=== PATIENT | female | born 1970 ===

== ENCOUNTER 2017-01-16 10:18 | Inpatient (IN) | payer MEDICAID, OTHER ==
[2017-01-16 10:29] VITALS: BMI 24.7
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
--- NOTE | 2017-01-16 11:22 | RAD ---
HISTORY: psych screen COMPARISON: No prior. FINDINGS: LUNGS: The lungs are well inflated. The right lung is clear. There is linear atelectasis/scarring in the left lower lobe. There is no focal consolidation. PLEURA: No significant pleural effusion identified, no pneumothorax apparent. CARDIOVASCULAR: Normal. OSSEOUS STRUCTURES: No significant abnormalities. VISUALIZED UPPER ABDOMEN: Normal. OTHER FINDINGS: None. IMPRESSION: No active pulmonary disease.
[2017-01-16 11:25] LABS: BASO # 0.1 K/uL (0.0-0.2); BASO % 0.9 % (0.0-2.0); EOS % 0.5 % (0.0-4.0); HEMATOCRIT 42.9 % (34.0-47.0); LYMPH % 34.4 % (20.0-40.0); MEAN CELL VOLUME 87.8 fl (81.0-99.0); MEAN CORPUSCULAR HGB CONC 34.1 g/dL (33.0-37.0); MEAN PLATELET VOLUME 7.9 fl (7.2-11.7); MONO # 0.5 K/uL (0.0-0.8); MONO % 9.4 % (0.0-10.0); NEUT # 3.2 K/uL (1.8-7.0); NEUT % 54.8 % (50.0-75.0); NRBC % 0.2 % (0.0-0.0); RED CELL DISTRIBUTION WIDTH 13.7 % (11.5-14.5); WHITE BLOOD COUNT 5.8 K/uL (4.8-10.8)
[2017-01-16 11:27] LABS: ALB/GLOB RATIO 1.1 (1.0-2.1); ALCOHOL SERUM < 10 mg/dl (0-10); ALKALINE PHOSPHATASE 71 U/L (38-126); ALT/SGPT 27 U/L (9-52); AST/SGOT 26 U/L (14-36); BILIRUBIN,TOTAL 0.5 mg/dl (0.2-1.3); BLOOD UREA NITROGEN 14 mg/dl (7-17); CALCIUM 9.7 mg/dL (8.4-10.2); CARBON DIOXIDE 27 mmol/L (22-30); CHLORIDE 103 mmol/L (98-107); GFR AFRICAN-AMERICAN > 60; GLUCOSE,RANDOM 83 mg/dL (65-105); POTASSIUM 4.2 MMOL/L (3.6-5.0); SODIUM 144 mmol/l (132-148); TOTAL PROTEIN 8.7 G/DL (6.3-8.2)
--- NOTE | 2017-01-16 16:47 | CARD ---
APPROVED REPORT EKG Measurement Heart [id number] <Conclusion> Normal sinus rhythm Normal ECG
[2017-01-16 18:12] LABS: RBC URINE 1 /hpf (0-3); URINE BACTERIA RARE (<OCC); URINE BILIRUBIN NEGATIVE (NEGATIVE); URINE BLOOD NEGATIVE (NEGATIVE); URINE COLOR YELLOW (YELLOW); URINE GLUCOSE (UA) NEG (Normal); URINE KETONE NEGATIVE (NEGATIVE); URINE LEUKOCYTE ESTERASE NEG Leu/uL (Negative); URINE PROTEIN NEGATIVE (NEGATIVE); URINE UROBILINOGEN 0.2-1.0 mg/dL (0.2-1.0); WBC URINE 3 /hpf (0-5)
--- NOTE | 2017-01-16 20:56 | ED PDOC ---
- Laboratory Results Result Diagrams: 01/16/17 11:00 01/16/17 11:00 - ECG O2 Sat by Pulse Oximetry: 100 (RA) Medical Decision Making Medical Decision Makin:00 Patient endorsed over to me by Olman Olivo MD, pending Crisis Evaluation, reevaluation and final disposition. 20:52 Patient has been evaluated by Crisis and meets criterion for psychiatric admission, with a diagnosis of Depression as per Dr. Schneider (Psychiatrist electronic engraver). Patient has agreed to sign herself in voluntarily for further treatment. Condition fair. Clinical Impression: Depression Scribe Attestation: Documented by Mariel Hurd, acting as a scribe for Jeff Whelan MD. Provider Scribe Attestation: All medical record entries made by the Scribe were at my direction and personally dictated by me. I have reviewed the chart and agree that the record accurately reflects my personal performance of the history, physical exam, medical decision making, and the department course for this patient. I have also personally directed, reviewed, and agree with the discharge instructions and disposition. Disposition - Clinical Impression Clinical Impression: Depression - POA Present On Arrival: None - Disposition Disposition: Admitted as In-Patient (psych) Disposition Time: 20:52 Condition: FAIR
[2017-01-16 21:44] VITALS: O2SAT 99
[2017-01-16] MEDS ORDERED: DiphenhydrAMINE 50 mg/ml Inj IM PRN (22:28)
[2017-01-16] MEDS ORDERED: Alum-Mag Hydrox-Simethicone Susp (30 mL) PO PRN (22:28)
[2017-01-16] MEDS ORDERED: Magnesium Hydroxide Susp 30 ml UD PO PRN (22:28)
[2017-01-17 08:16] LABS: T4 5.46 ug/dl (5.5-11.0)
[2017-01-17 08:30] LABS: THYROID STIMULATING HORMONE 0.32 mIU/ML (0.46-4.68)
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
--- NOTE | 2017-01-18 08:56 | PCM.PYCHPN ---
Psychiatric Progress Note - Psychiatric Progress Note Patient seen today, length of contact: Patient evaluated, chart reviewed, case discussed with team Patient Chief Complaint: "I'm feeling better." Problems Identified/Issues Discussed: No significant events overnight. She reports that her mood is improving. She is hoping to be discharged soon, but is agreeable to staying to get restabilized on her medications. She denies ideation to harm herself and is adamant that she did not attempt to kill herself. She denies acute psychotic symptoms. She reports that the Trazodone has not been helpful for sleep, so she does not want to take it anymore. Medication Change: Yes (Stop Trazodone) Medical Record Reviewed: Yes Mental Status Examination - Cognitive Function Orientation: Person, Place, Situation, Time Memory: Intact Attention: WNL Concentration: WNL Association: WNL Fund of Knowledge: WNL - Mood Mood: Anxious - Affect Affect: Broad - Speech Speech: Appropriate - Formal Thought Process Formal Thought Process: No Impairment Psychotic Thoughts and Behaviors: NO AH/VH/paranoia - Suicidal Ideation Suicidal Ideation: No - Homicidal Ideation Homicidal Ideation: No Goal/Treatment Plan - Goal/Treatment Plan Need for Continued Stay: Severe depression anxiety, Discharge may exacerbated symptoms Progress Toward Problem(s) and Goals/Treatment Plan: 46 yo female w/ substance induced mood disorder, anxiety disorder unspecified, cocaine/barbiturate/benzodiazepine abuse, now reporting improvement in mood and denies ideation to harm herself. -Continue Lexapro 10 mg PO Daily, Abilify 10 mg PO Daily -Supportive and motivational therapy -Group therapy -Medicine consult -Nicotine patch -No 1:1 indicated as the patient can contract for safety -Likely discharge on Thursday, if patient continues to improve clinically Estimated Date of D/C: 01/20/17 - Smoking Cessation Smoking Cessation Initiated: Yes
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
[2017-01-19] MEDS ORDERED: Alum-Mag Hydrox-Simethicone Susp (30 mL) PO PRN (11:22)
[2017-01-19] MEDS ORDERED: Magnesium Hydroxide Susp 30 ml UD PO PRN (11:22)
[2017-01-19] MEDS ORDERED: DiphenhydrAMINE 50 mg/ml Inj IM PRN (11:22)
[2017-01-20 06:28] VITALS: PULSE 73; RESP 20
--- NOTE | 2017-01-20 12:52 | PCM.PYCHPN ---
Psychiatric Progress Note - Psychiatric Progress Note Patient seen today, length of contact: Patient evaluated, chart reviewed, case discussed with team Patient Chief Complaint: "I'm feeling better." Problems Identified/Issues Discussed: Patient was screened by [facility] and accepted, bed pending. She denies ideation to harm herself and reports that her mood continues to improve. She denies acute psychotic symptoms. Medication Change: No Medical Record Reviewed: Yes Mental Status Examination - Cognitive Function Orientation: Person, Place, Situation, Time Memory: Intact Attention: WNL Concentration: WNL Association: WNL Fund of Knowledge: [facility] Decription of patient's judgement and insights: Fair I/J - Mood Mood: Neutral - Affect Affect: Broad - Speech Speech: Appropriate - Formal Thought Process Formal Thought Process: No Impairment Psychotic Thoughts and Behaviors: NO AH/VH/paranoia - Suicidal Ideation Suicidal Ideation: No - Homicidal Ideation Homicidal Ideation: No Goal/Treatment Plan - Goal/Treatment Plan Need for Continued Stay: Severe depression anxiety, Discharge may exacerbated symptoms Progress Toward Problem(s) and Goals/Treatment Plan: 46 yo female w/ substance induced mood disorder, anxiety disorder unspecified, cocaine/barbiturate/benzodiazepine abuse, now reporting improvement in mood and denies ideation to harm herself. -Continue Lexapro 10 mg PO Daily, Abilify 10 mg PO Daily -Supportive and motivational therapy -Nicotine patch -Accepted to [facility] for involuntary admission, awaiting bed Estimated Date of D/C: 01/21/17 - Smoking Cessation Smoking Cessation Initiated: Yes
[2017-01-20 15:42] VITALS: BP 136/84; TEMP 97.7
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
== END 2017-01-20 22:15 | DRG 747 ==
LOC: H.ER 10:18 → H.EROBSV 11:28 → OBSVTOIN 20:52 → H.ERHOLD 21:06 → H.STEP 22:25
PROVIDERS: ADMIT Psychiatry & Neurology Psychiatry; ATTEND Psychiatry & Neurology Psychiatry
PROC: GZHZZZZ Group Psychotherapy (ICD-10-PCS; principal; 2017-01-16)
PROC: GZ58ZZZ Individual Psychotherapy, Cognitive-Behavioral (ICD-10-PCS; 2017-01-16)
DX: F14.14 Cocaine abuse with cocaine-induced mood disorder (principal); F13.14 Sedative, hypnotic or anxiolytic abuse with sedative, hypnotic or anxiolytic-induced mood disorder; M05.20 Rheumatoid vasculitis with rheumatoid arthritis of unspecified site; F41.9 Anxiety disorder, unspecified; F12.10 Cannabis abuse, uncomplicated; Z91.410 Personal history of adult physical and sexual abuse; F17.210 Nicotine dependence, cigarettes, uncomplicated

== ENCOUNTER 2018-07-09 12:35 | Inpatient (IN) | payer MEDICAID, OTHER ==
[2018-07-09 12:36] VITALS: BMI 24.7
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
[2018-07-09] MEDS ORDERED: Tdap Vaccine 0.5 ml Vial (10-64 yrs) IM ONE ×2 (13:54→14:29)
[2018-07-09 18:28] LABS: BASO % 0.8 % (0.0-2.0); EOS % 0.4 % (0.0-4.0); HEMOGLOBIN 14.3 g/dL (12.0-16.0); LYMPH # 1.3 K/uL (1.0-4.3); LYMPH % 30.1 % (20.0-40.0); MEAN CELL VOLUME 89.2 fl (81.0-99.0); MEAN CORPUSCULAR HEMOGLOBIN 30.9 pg (27.0-31.0); MEAN CORPUSCULAR HGB CONC 34.6 g/dL (33.0-37.0); MEAN PLATELET VOLUME 7.1 fl (7.2-11.7); MONO # 0.6 K/uL (0.0-0.8); MONO % 14.2 % (0.0-10.0); NEUT # 2.4 K/uL (1.8-7.0); NEUT % 54.5 % (50.0-75.0); RBC 4.65 Mil/uL (3.80-5.20); RED CELL DISTRIBUTION WIDTH 13.6 % (11.5-14.5); WHITE BLOOD COUNT 4.4 K/uL (4.8-10.8)
[2018-07-09 18:33] LABS: SQUAMOUS EPITHIAL 3 /hpf (0-5); URINE BACTERIA FEW (<OCC); URINE BILIRUBIN NEGATIVE (NEGATIVE); URINE BLOOD NEGATIVE (NEGATIVE); URINE CLARITY SLIGHTY-CLOUDY (Clear); URINE COLOR YELLOW (YELLOW); URINE GLUCOSE (UA) NEG (Normal); URINE LEUKOCYTE ESTERASE NEG Leu/uL (Negative); URINE PROTEIN NEGATIVE (NEGATIVE); URINE UROBILINOGEN 0.2-1.0 mg/dL (0.2-1.0)
[2018-07-09 18:36] LABS: ALB/GLOB RATIO 1.1 (1.0-2.1); ALBUMIN 4.5 g/dL (3.5-5.0); ALT/SGPT 23 U/L (9-52); AST/SGOT 32 U/L (14-36); BLOOD UREA NITROGEN 21 mg/dl (7-17); CALCIUM 9.3 mg/dL (8.4-10.2); GFR NON-AFRICAN AMERICAN 53
[2018-07-09 19:04] LABS: BARBITURATES, UR NEGATIVE (NEGATIVE); BENZODIAZEPINES, UR NEGATIVE (NEGATIVE); OPIATES, UR POSITIVE (NEGATIVE); PHENCYCLIDINE, UR NEGATIVE (NEGATIVE)
[2018-07-09 22:16] VITALS: O2SAT 100
[2018-07-09] MEDS ORDERED: Magnesium Hydroxide Susp 30 ml UD PO PRN (22:44)
[2018-07-09] MEDS ORDERED: DiphenhydrAMINE 50 mg/ml Inj IM PRN (22:44)
--- NOTE | 2018-07-10 03:03 | PCM.BM ---
<Debra Chauhan Adina - Last Filed: 07/10/18 03:01> Treatment Plan Problems - Problems identified on initial assessmt Medication nonadherence Date Initiated: 07/10/18 Time Initiated: 03:02 Assessment reference: NA Status: Active Aletered Sleep Patterns Date Initiated: 07/10/18 Time Initiated: 03:02 Assessment reference: NA Status: Active Treatment assets and liabiliti Patient Assests: cooperative, self-reliant, ADL independent, good support system Patient Liabilities: relationship conflicts, substance abuse - Milieu Protocol Maintain good personal hygiene: every shift Encourage regular showers, every shift Remind patient to perform daily oral care, every shift Assist patient to perform ADL's Maintain personal safety: every shift Educate patient to report safety concerns to staff, every shift Monitor environment for contraband/sharps Medication safety: Monitor for expected outcome, potential side effects: every shift, Assess barriers to learning: every shift, Assess readiness for medication education: every shift <AngelCourtney - Last Filed: 07/14/18 15:55> Treatment assets and liabiliti Patient Assests: adapts well, cooperative, resourceful, self-reliant, ADL independent, negotiates basic needs, cognitively intact Family Contact Family contact: Family has been contacted by patient, Patient declines to allow family contact at present - Goals for Treatment Patient goals for treatment: Patient to continue stabilization on 3NP through medication management and group/supportive therapy. Patient to be encouraged to attend groups regularly to promote self-awareness, sobriety, and improve insight, compliance, coping skills and self-esteem. Patient to be provided with referral for appropriate level of aftercare to reduce risk of future hospitalizations and ensure safety in the community. Discharge/Continuing Care - Education Needs Education Needs: Patient Medication, Patient Diagnosis/Disease Process, Patient Coping Skills, Patient Anger Management skills, Patient Community resources, Patient Aftercare Safety Plan - Discharge Discharge Criteria: Tolerates medication w/o severe side effects, Free of Suicidal thoughts, Free of agitation, Normal sleep pattern, Other Discharge to:: Home, Custodial - Treatment Team Participation Patient/Family/SO Statement: 07/14/18 15:57 Patient was seen in tx team on 07/12 to discuss precursors to hospitalization and tx goals. Pt. presented as disheveled with fair ADLs. Pt. labile and easily irritable, primarily regarding current hospitalization and recommendation for further stabilization. Pt. discharge focused, expressing plans to return to work, attend OPS with [facility] and stay in [facility] upon discharge instead of returning to [facility] home. Pt. became loud and agitated when encouraged to remain on 3NP for further stabilization. Pt. began slamming on tx team table, yelling at staff, and lifting gown to expose self in attempts to prove that injuries sustained prior to admission were not a suicide attempt. Pt. required limit setting and descalation. Speech: pressured and confrontational. Insight into precursors to hospitalization, illness and need for tx is poor. Coping skills/Judgment impaired. Pt. superficially motivated for tx and minimally receptive to feedback. Pt. denied sxs of depression or anxiety. Pt. denied SI/HI. Pt. left room abruptly and refused to sign tx plan. Discussed with Family/SO: No Was Patient/Family/SO present at Treatment Team Meeting: Yes <Garfield Covarrubias - Last Filed: 07/15/18 11:31> Treatment Plan Problems - Problems identified on initial assessmt Medication nonadherence Date Initiated: 07/10/18 Time Initiated: 03:02 Assessment reference: NA Status: Active Aletered Sleep Patterns Date Initiated: 07/10/18 Time Initiated: 03:02 Assessment reference: NA Status: Active Bipolar Disorder Date Initiated: 07/13/18 Time Initiated: 10:01 Assessment reference: NA Status: Active - Diagnosis (1) Depression Status: Acute Interventions: psychotherapy, pharmacotherapy 07/15/18 11:31
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
[2018-07-10 08:34] LABS: T4 5.47 ug/dl (5.5-11.0)
--- NOTE | 2018-07-10 10:44 | CARD ---
APPROVED REPORT Date of service: 07/09/2018 EKG Measurement Heart [id number] <Conclusion> Normal sinus rhythm Prolonged QT Abnormal ECG
--- NOTE | 2018-07-10 16:42 | PCM.PSYCH ---
Initial Psychiatric Evaluation - Initial Psychiatric Evaluation Chief Complaint (in patient's own words): was feeling stressed saddened anxious Patient's Reaction to Hospitalization: signed in voluntarily History of Present Illness and Precipitating Events: pt reports that was feeling stressed did not try to cut her wrist was result of trying to climb over fence after reported argument with family member. reports previous treatment in community for depression and anxiety with insomnia pt emergency room crisis note: CW (IVANA) spoke to pt's daughter (Anabela Kim) via phone, whom reported that she is concerned about her mother's safety. She reported that pt has an extensive psychiatric history and she has been diagnosed with Bipolar Disorder and she is not presently receiving psychiatric treatment. Pt's daughter stated pt is non-complian with her medication and she has attempted to end her life several times. Pt's daughter reported that today pt jumped over the fence as a "way to hurt herself" as she stated she wanted to end her life. Pt's daughter stated that pt's has other two younger daughters and she is worried that pt is not mentally stable to care for them effectively. Pt's daughter reported that pt also uses drug and alcohol to cope with her emotions. Pt's daughter reported that she believes pt would benefit from beign admitted psychiatrically. Current Medications: Active Medications Generic Name Dose Route Start Last Admin Trade Name Freq PRN Reason Stop Dose Admin Acetaminophen 650 mg 07/09/18 22:44 07/09/18 23:03 Tylenol 325mg Tab PO 650 mg Q4 PRN Administration Pain, moderate (4-7) Al Hydrox/Mg Hydrox/Simethicone 30 ml 07/09/18 22:44 Maalox Plus 30 Ml PO Q4 PRN Dyspepsia Diphenhydramine HCl 50 mg 07/09/18 22:44 Benadryl IM Q6 PRN Extrapyramidal S/S Unable PO Diphenhydramine HCl 50 mg 07/09/18 22:44 07/09/18 23:05 Benadryl PO 50 mg Q6 PRN Administration Extrapyramidal Symptoms Diphenhydramine HCl 50 mg 07/09/18 22:51 Benadryl PO HS PRN Sleep Haloperidol 5 mg 07/09/18 22:44 Haldol PO Q4 PRN Agitation Haloperidol Lactate 5 mg 10/05/18 22:44 Haldol IM Q4 PRN Agitation, Unable to Take PO Lorazepam 2 mg 07/09/18 22:44 Ativan IM Q4 PRN Anxiety/Agitation,Unable PO Lorazepam 1 mg 07/09/18 22:44 Ativan PO Q6 PRN Anxiety/Agitation Magnesium Hydroxide 30 ml 07/09/18 22:44 Milk Of Magnesia PO HS PRN Constipation Past Psychiatric History - Past Psychiatric History Prior Professional Help: outpatient treatment depression anxiety insomnia History of Abuse: denies History of ETOH/Drug Use: opiates and cocain in urine toxicology History of Family Illness: denies Pertinent Medical Hx (Current Medical&Sleep Prob, Allergies): Allergies Allergy/AdvReac Type Severity Reaction Status Date / Time No Known Allergies Allergy Verified 07/09/18 12:40 Alprazolam [Xanax] 2 mg PO Q6 PRN 07/09/18 Buprenorphine HCl/Naloxone HCl [Buprenorphin-Naloxon 8-2 mg Sl] 1 tab PO Q12 07/09/18 DULoxetine [Cymbalta] 30 mg PO DAILY 07/09/18 Mirtazapine [Remeron] 30 mg PO HS 07/09/18 Quetiapine Fumarate [Seroquel] 400 mg PO DAILY 07/09/18 Zolpidem [Ambien] 10 mg PO HS 07/09/18 Review of Systems - Psychiatric Psychiatric: Abnormal Sleep Pattern, Anxiety, Depression, Suicidal Ideation Mental Status Examination - Affect Affect: Constricted - Motor Activity Motor Activity: Psychomotor Retardation - Reliability in Providing Information Reliability in Providing Information: Fair - Speech Speech: Organized - Mood Mood: Depressed, Anxious - Formal Thought Process Formal Thought Process: No Impairment - Obsessions/Compulsions Obsessions: No Compulsions: No - Cognitive Functions Orientation: Person, Place, Situation, Time Sensorium: Alert Attention/Concentration: Attentive Judgement: Imparied, as evidence by: Other - Risk Risk: Suicidal - Strength & Assets Inventory Strength & Assets Inventory: Cooperative (questionable follow up) DSM 5 DX - DSM 5 DSM 5 Diagnosis: 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 generalized anxiety insomnia status post laceration left wrist - Recommended/Plan of Treatment Treatment Recommendations and Plan of Treatment: inpt admission per attending physician vital signs and clinical observation per protocol and per clinical status prns per unit protocol hospitalist consult restart home medication ambien 5mg po hs prn insomnia cymbalta 30mg po am first dose now mirtazepine 30mg po hs discharge planning in progress Projected ELOS: 5-7 days or per clinical status Prognosis: guarded Discharge Plan and Discharge Criteria: safety - Smoking Cessation Smoking Cessation Initiated: No Reason for not providing: defers
--- NOTE | 2018-07-11 19:19 | PCM.PYCHPN ---
Psychiatric Progress Note - Psychiatric Progress Note Patient seen today, length of contact: chart reviewed case discussed with Patient Chief Complaint: reports feeling abit calmer, sleeping better, no side effects medications, staff report pt adherent with treatment, staff report dressing was changed wrist with good approximation no visible signs of infection, pt denies complaints of pain. reports was accident while jumping over fence denies as being suicide attempt. Problems Identified/Issues Discussed: alteration in mood alteration in sleep alteration in skin integrity Medical Problems: per chart laceration left wrist per chart Diagnostic Results: per psychiatry per medicine per nursing per social insurance analyst per recreational therapy DSM 5 Symptoms Update: lability in mood impaired sleep Medication Change: No Medical Record Reviewed: Yes Consults ordered or reviewed: pt seen by hospitalist Mental Status Examination - Cognitive Function Orientation: Person, Place, Situation, Time Attention: WNL Concentration: WNL Association: WNL Fund of Knowledge: WNL Decription of patient's judgement and insights: impaired - Mood Mood: Depressed, Anxious - Affect Affect: Constricted - Formal Thought Process Formal Thought Process: No Impairment - Homicidal Ideation Homicidal Ideation: No Goal/Treatment Plan - Goal/Treatment Plan Progress Toward Problem(s) and Goals/Treatment Plan: inpt milieu vital signs and clinical observation per protocol and per clinical status dressing change per protocol adjust meds per status discharge planning in progress Estimated Date of D/C: 07/13/18 - Smoking Cessation Smoking Cessation Initiated: No Reason for not providing: defers
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
[2018-07-12] MEDS: Divalproex 500 mg DR(BID formulation) PO SCH ×2 (15:53→17:52)
[2018-07-12] MEDS ORDERED: Divalproex 500 mg DR(BID formulation) PO SCH (22:00)
[2018-07-13] MEDS: Divalproex 500 mg DR(BID formulation) PO SCH (08:43)
[2018-07-13] MEDS: Alum-Mag Hydrox-Simethicone Susp (30 mL) PO PRN (08:45)
--- NOTE | 2018-07-13 10:02 | PCM.BM ---
Treatment Plan Problems - Problems identified on initial assessmt Medication nonadherence Date Initiated: 07/10/18 Time Initiated: 03:02 Assessment reference: NA Status: Active Aletered Sleep Patterns Date Initiated: 07/10/18 Time Initiated: 03:02 Assessment reference: NA Status: Active Bipolar Disorder Date Initiated: 07/13/18 Time Initiated: 10:01 Assessment reference: NA Status: Active Treatment assets and liabiliti Patient Assests: cooperative, self-reliant, ADL independent, good support system Patient Liabilities: relationship conflicts, substance abuse - Milieu Protocol Maintain good personal hygiene: every shift Encourage regular showers, every shift Remind patient to perform daily oral care, every shift Assist patient to perform ADL's Maintain personal safety: every shift Educate patient to report safety concerns to staff, every shift Monitor environment for contraband/sharps Medication safety: Monitor for expected outcome, potential side effects: every shift, Assess barriers to learning: every shift, Assess readiness for medication education: every shift Milieu Narrative: discontinue seroquel strat depakote 500mg daily and 1000mg qhs start wellbutrin 75mg daily increase gradually and cross titrate with cymbalta Motivational group and supportive therapy Discharge/Continuing Care - Treatment Team Participation Patient/Family/SO Statement: discontinue seroquel strat depakote 500mg daily and 1000mg qhs start wellbutrin 75mg daily increase gradually and cross titrate with cymbalta Motivational group and supportive therapy
--- NOTE | 2018-07-13 14:13 | PCM.PYCHPN ---
Psychiatric Progress Note - Psychiatric Progress Note Patient seen today, length of contact: chart reviewed case discussed with Patient Chief Complaint: I want to start on my own I could not tolerate my family Problems Identified/Issues Discussed: pt on evaluation, irritable, manic labile edgy and angry, speech loud and pressured reported poor sleep with early insomnia, thought process tangential, pt with limited insight relates her illness to her family stating that they push her to use drugs and to think about suicide discussed with pt the need to adjust her medications, adjust dose of depakote and increase wellbutrin, discussed the need to be referred to [facility] outpatient program on discharge pt denied any current suicidal or homicidal ideation, denied perceptual disturbances DSM 5 Symptoms Update: bipolar I disorder mixed cocaine use disorder Medication Change: Yes (increase depakote and wellbutrin) Medical Record Reviewed: Yes Mental Status Examination - Cognitive Function Orientation: Person, Place, Situation, Time Attention: WNL Concentration: WNL Association: WNL Fund of Knowledge: [facility] Decription of patient's judgement and insights: partial insight poor judgment - Mood Mood: Depressed, Anxious Additional comments: angry - Affect Additional comments: irritable, labile - Speech Speech: Loud, Pressured - Formal Thought Process Formal Thought Process: Circumstantial Psychotic Thoughts and Behaviors: pt dhas paranoid delusions towards family - Suicidal Ideation Suicidal Ideation: No - Homicidal Ideation Homicidal Ideation: No Goal/Treatment Plan - Goal/Treatment Plan Need for Continued Stay: Severe depression anxiety, Discharge may exacerbated symptoms, Failed transitioning Progress Toward Problem(s) and Goals/Treatment Plan: depakote 500mg bid increase wellbutrin 150mg daily, discontinue cymbalta vistaril 50mg q8prn remeron 15mg qhs ambien 5mg qhs Motivational group and supportive therapy Estimated Date of D/C: 07/16/18
[2018-07-13] MEDS ORDERED: Divalproex 500 mg DR(BID formulation) PO SCH (22:00)
[2018-07-14] MEDS: Alum-Mag Hydrox-Simethicone Susp (30 mL) PO PRN (08:54)
[2018-07-14] MEDS ORDERED: Divalproex 500 mg DR(BID formulation) PO SCH (09:00)
[2018-07-14] MEDS: buPROPion SR 150 MG TABLET PO SCH (09:00)
[2018-07-14] MEDS ORDERED: Risperidone M tab 1 MG PO STA (14:22)
--- NOTE | 2018-07-14 15:42 | PCM.PYCHPN ---
Psychiatric Progress Note - Psychiatric Progress Note Patient seen today, length of contact: chart reviewed case discussed with Patient Chief Complaint: I am angry at my mother Problems Identified/Issues Discussed: pt on evaluation, continues to be loud, irritable , labile, speech loud but less pressured, reported poor sleep with intermediate and late insomnia discussed starting risperidone with plan to change to risperidone consta to maintain compliance , discussed starting [facility] outpatient program on discharge pt denied any current suicidal or homicidal ideation, denied perceptual disturbances DSM 5 Symptoms Update: bipolar I disorder mixed severe cocaine use disorder Medication Change: Yes (start risperidone) Medical Record Reviewed: Yes Mental Status Examination - Cognitive Function Orientation: Person, Place, Situation, Time Attention: WNL Concentration: WNL Association: WNL Fund of Knowledge: WN Decription of patient's judgement and insights: partial insight poor judgment - Mood Mood: Depressed, Anxious - Affect Affect: Constricted - Speech Speech: Loud, Pressured - Formal Thought Process Formal Thought Process: Circumstantial Psychotic Thoughts and Behaviors: pt dhas paranoid delusions towards family - Suicidal Ideation Suicidal Ideation: No - Homicidal Ideation Homicidal Ideation: No Goal/Treatment Plan - Goal/Treatment Plan Need for Continued Stay: Severe depression anxiety, Discharge may exacerbated symptoms, Failed transitioning Progress Toward Problem(s) and Goals/Treatment Plan: discontinue depakote start risperidone 1mg bid, monitor pt for psychopharmacological effects and side effect profile wellbutrin 150mg daily, vistaril 50mg q8prn remeron 15mg qhs ambien 5mg qhs Motivational group and supportive therapy Estimated Date of D/C: 07/16/18
[2018-07-14] MEDS ORDERED: Risperidone M tab 1 MG PO SCH (22:00)
[2018-07-15] MEDS: buPROPion SR 150 MG TABLET PO SCH (08:56)
[2018-07-15] MEDS ORDERED: Risperidone M tab 0.5MG PO SCH (09:00)
[2018-07-15 09:12] VITALS: RESP 18
--- NOTE | 2018-07-15 15:51 | PCM.PYCHPN ---
Psychiatric Progress Note - Psychiatric Progress Note Patient seen today, length of contact: chart reviewed case discussed with Patient Chief Complaint: I feel better with the new medicine Problems Identified/Issues Discussed: pt on evaluation, reported feeling mood more stable with risperidone, no reported side effects, speech less pressured calmer affect thought process more goal directed , pt agreed to start [facility] outpatient on discharge , pt denied any current suicidal or homicidal ideation, denied perceptual disturbances DSM 5 Symptoms Update: bipolar I disorder mixed Medication Change: Yes (increase risperidone) Medical Record Reviewed: Yes Mental Status Examination - Cognitive Function Orientation: Person, Place, Situation, Time Attention: WNL Concentration: WNL Association: WNL Fund of Knowledge: [facility] Decription of patient's judgement and insights: partial insight poor judgment - Mood Mood: Anxious - Affect Affect: Constricted - Speech Speech: Appropriate - Formal Thought Process Formal Thought Process: Circumstantial Psychotic Thoughts and Behaviors: pt dhas paranoid delusions towards family - Suicidal Ideation Suicidal Ideation: No - Homicidal Ideation Homicidal Ideation: No Goal/Treatment Plan - Goal/Treatment Plan Need for Continued Stay: Severe depression anxiety, Discharge may exacerbated symptoms, Failed transitioning Progress Toward Problem(s) and Goals/Treatment Plan: risperidone 3mg qhs , cogentin 1mg qhs monitor pt for psychopharmacological effects and side effect profile wellbutrin 150mg daily, vistaril 50mg q8prn remeron 15mg qhs ambien 5mg qhs Motivational group and supportive therapy Estimated Date of D/C: 07/16/18
[2018-07-15] MEDS ORDERED: Risperidone M tab 1 MG PO SCH (22:00)
[2018-07-16] MEDS: buPROPion SR 150 MG TABLET PO SCH (09:03)
[2018-07-16 09:29] VITALS: BP 112/73; PULSE 79; TEMP 97.9
--- NOTE | 2018-07-16 15:42 | PCM.PYCHDC ---
Mental Status Examination - Mental Status Examination Orientation: Person, Place, Situation Memory: Intact Mood: Neutral Affect: Broad Speech: Appropriate Attention: WNL Concentration: WNL Association: WNL Fund of Knowledge: WNL Formal Thought Process: Circumstantial Description of patient's judgement and insight: partial insight poor judgment Psychotic Thoughts and Behaviors: pt dhas paranoid delusions towards family Suicidal Ideation: No Current Homicidal Ideation?: No Discharge Summary - Discharge Note Reason for Hospitalization: t reports that was feeling stressed did not try to cut her wrist was result of trying to climb over fence after reported argument with family member. reports previous treatment in community for depression and anxiety with insomnia pt emergency room crisis note: CW (IVANA) spoke to pt's daughter (Anabela Kim) via phone, whom reported that she is concerned about her mother's safety. She reported that pt has an extensive psychiatric history and she has been diagnosed with Bipolar Disorder and she is not presently receiving psychiatric treatment. Pt's daughter stated pt is non-complian with her medication and she has attempted to end her life several times. Pt's daughter reported that today pt jumped over the fence as a "way to hurt herself" as she stated she wanted to end her life. Pt's daughter stated that pt's has other two younger daughters and she is worried that pt is not mentally stable to care for them effectively. Pt's daughter reported that pt also uses drug and alcohol to cope with her emotions. Pt's daughter reported that she believes pt would benefit from beign admitted psychiatrically. Consultations:: List each consultation separately and include: 1. Reason for request. 2. Findings. 3. Follow-up Summary of Hospital Course include:: 1. Description of specific treatment plan utilized for patients during their course of treatmen. 2. Summarize the time- course for resolution of acute symptoms and/or regressed behaviors. 3. Describe issues identified and worked on during hospitalization. 4. Describe medication utilized. 5. Describe medical problems identified and treated. 6. Reassessment of suicide risk Summary of Hospital Course: pt on admission was depressed irritable, labile pt was started on depakote and wellbutrin depakote was changed to risperidone motivational group and supportive therapy provided pt agreed to start [facility] outpatient program on discharge no reported side effects of medications on discharge mental status was stable, pt denied any current suicidal or homicidal ideation denied perceptual disturbances - Diagnosis (1) Depression Status: Acute - Final Diagnosis (DSM 5) Condition upon Discharge: STABLE DSM 5: bipolar I disorder mixed severe cocaine use disorder cannabis use disorder Disposition: HOME/ ROUTINE Follow-up Treatment Plan: risperidone 3mg qhs , cogentin 1mg qhs monitor pt for psychopharmacological effects and side effect profile wellbutrin 150mg daily, vistaril 50mg q8prn remeron 15mg qhs ambien 5mg qhs Motivational group and supportive therapy Prescriptions/Medication Reconciliation: Benztropine [Cogentin] 1 mg PO HS 30 Days #30 tab buPROPion SR [Wellbutrin SR 150 MG] 150 mg PO DAILY 30 Days #30 tab hydrOXYzine Pamoate [Vistaril] 50 mg PO Q8 PRN 30 Days #90 cap PRN Reason: Anxiety Mirtazapine [Remeron] 15 mg PO HS 30 Days #30 tab Nicotine 14 mg/24 hr [Nicoderm CQ] 1 patch TD DAILY 30 Days #30 patch risperiDONE [RisperDAL Tab] 3 mg PO HS 30 Days #30 tab Zolpidem [Ambien] 5 mg PO HS #30 tab - Smoking Cessation Smoking Cessation Medication prescribed: Yes - Antipsychotic Medications Pt discharged on 2 or more routine antipsychotic medications: No
== END 2018-07-16 11:19 | disposition home or self-care (01) | DRG 430 ==
LOC: H.ER 12:35 → H.ERHOLD 18:32 → H.PSYCH 22:28
PROVIDERS: ADMIT Psychiatry & Neurology Psychiatry; ATTEND Psychiatry & Neurology Psychiatry
PROC: GZHZZZZ Group Psychotherapy (ICD-10-PCS; principal; 2018-07-09)
PROC: GZ58ZZZ Individual Psychotherapy, Cognitive-Behavioral (ICD-10-PCS; 2018-07-09)
PROC: HZ52ZZZ Individual Psychotherapy for Substance Abuse Treatment, Cognitive-Behavioral (ICD-10-PCS; 2018-07-09)
DX: F31.63 Bipolar disorder, current episode mixed, severe, without psychotic features (principal); F11.10 Opioid abuse, uncomplicated; F14.10 Cocaine abuse, uncomplicated; E86.0 Dehydration; F12.90 Cannabis use, unspecified, uncomplicated; Z91.5 Personal history of self-harm; F17.210 Nicotine dependence, cigarettes, uncomplicated; M06.9 Rheumatoid arthritis, unspecified

== ENCOUNTER 2019-01-23 01:34 | Emergency (ER) | payer OTHER ==
[2019-01-23 01:45] VITALS: BMI 22.4
[2019-01-23 01:52] VITALS: RESP 18; TEMP 98.7; O2SAT 100
--- NOTE | 2019-01-23 02:14 | ED PDOC ---
HPI: Psych/Substance Abuse Time Seen by Provider: 01/23/19 01:42 Chief Complaint (Nursing): Substance Abuse History Per: Patient, EMS History/Exam Limitations: no limitations Onset/Duration Of Symptoms: Unknown Current Symptoms Are (Timing): Still Present Modifying Factor(s): Cocaine Additional Complaint(s): 48 y/o male with a PMHx of Bipolar Disorder brought in by EMS for psychiatric evaluation. As per EMS, family member called 911 as patient had bizarre behavior while at home. Patient admitted to using drugs earlier today, more specifically marijuana, cocaine and possibly adderall. Otherwise, patient offer no additional complaints and denies suicidal ideation, homicidal ideation and Patient reports of having issues in the family at home and was upset. PMD: no provider Past Medical History Reviewed: Historical Data, Nursing Documentation, Vital Signs Vital Signs: Last Vital Signs Temp 98.7 F 01/23/19 01:45 Pulse 120 H 01/23/19 01:45 Resp 18 01/23/19 01:45 BP 162/116 H 01/23/19 01:45 Pulse Ox 100 01/23/19 01:45 - Medical History PMH: Anxiety, Bipolar Disorder, Depression, Rheumatoid Arthritis Denies: Diabetes, Hepatitis, HIV, HTN, Chronic Kidney Disease, Seizures, Sexually Transmitted Disease - Surgical History Surgical History: No Surg Hx - Family History Family History: States: Unknown Family Hx - Social History Drugs: Cocaine, Other (marijuana and adderall (possibly)) - Home Medications Home Medications: Ambulatory Orders Medication Instructions Recorded Buprenorphine HCl/Naloxone HCl 1 tab PO Q12 07/09/18 [Buprenorphin-Naloxon 8-2 mg Sl] Zolpidem [Ambien] 10 mg PO HS 07/09/18 Benztropine [Cogentin] 1 mg PO HS 30 Days #30 tab 07/16/18 Mirtazapine [Remeron] 15 mg PO HS 30 Days #30 tab 07/16/18 Nicotine 14 mg/24 hr [Nicoderm CQ] 1 patch TD DAILY 30 Days #30 patch 07/16/18 Zolpidem [Ambien] 5 mg PO HS #30 tab 07/16/18 buPROPion SR [Wellbutrin SR 150 MG] 150 mg PO DAILY 30 Days #30 tab 07/16/18 hydrOXYzine Pamoate [Vistaril] 50 mg PO Q8 PRN 30 Days #90 cap 07/16/18 risperiDONE [RisperDAL Tab] 3 mg PO HS 30 Days #30 tab 07/16/18 - Allergies Allergies/Adverse Reactions: Allergies Allergy/AdvReac Type Severity Reaction Status Date / Time No Known Allergies Allergy Verified 01/23/19 01:45 Review of Systems ROS Statement: Except As Marked, All Systems Reviewed And Found Negative Psych: Positive for: Other (possible substance abuse). Negative for: Suicidal ideation (or homicidal ideation) Physical Exam - Reviewed Nursing Documentation Reviewed: Yes Vital Signs Reviewed: Yes - Physical Exam Appears: Positive for: No Acute Distress Head Exam: Positive for: ATRAUMATIC, NORMOCEPHALIC Skin: Positive for: Normal Color, Warm, Dry Eye Exam: Positive for: Normal appearance, EOMI Cardiovascular/Chest: Positive for: Regular Rate, Rhythm Extremity: Positive for: Normal ROM Neurological/Psych: Positive for: Awake, Alert, Oriented (x3), Mood/Affect (Anxious) - ECG O2 Sat by Pulse Oximetry: 100 (RA) Pulse Ox Interpretation: Normal Medical Decision Making Medical Decision Making: Time: 226 Impression: Substance Abuse Plan: -- Patient is not a danger to herself or others. There is no evidence of acute psychosis noted. Patient does not require psychiatric evaluation and is stable for discharge home. Scribe Attestation: Documented by Sanjuanita Javier, acting as a scribe Mariano Thapa MD. Provider Scribe Attestation: All medical record entries made by the Scribe were at my direction and personally dictated by me. I have reviewed the chart and agree that the record accurately reflects my personal performance of the history, physical exam, medical decision making, and the department course for this patient. I have also personally directed, reviewed, and agree with the discharge instructions and disposition. Disposition - Clinical Impression Clinical Impression: Substance abuse - Patient ED Disposition Is Patient to be Admitted: No Doctor Will See Patient In The: Office Counseled Patient/Family Regarding: Studies Performed, Diagnosis, Need For Followup - Disposition Referrals: Community Mental Health [Outside] Disposition: Routine/Home Disposition Time: 02:00 Condition: GOOD Instructions: Polysubstance Abuse
[2019-01-23 02:51] VITALS: BP 148/74; PULSE 98
== END 2019-01-23 02:49 | disposition home or self-care (01) ==
LOC: H.ER 01:34
DX: F19.10 Other psychoactive substance abuse, uncomplicated (principal)